=== PATIENT | male | born 1965 | race Caucasian/White ===

== ENCOUNTER 2018-08-03 21:06 | Inpatient (IN) | payer MEDICAID ==
[~2018-08-03] VITALS: Ht 180.3 cm; Wt 89.8 kg
[~2018-08-03 21:06] MED LIST: IBUPROFEN
--- NOTE | 2018-08-03 22:09 | NUR ---
Dr. Manuel at bedside for MSE.
[2018-08-03] MEDS ORDERED: IV NORMAL SALINE 1000 ML BAG IV ONE (22:15)
[2018-08-03] MEDS ORDERED: VANCOMYCIN IV 1,000 MG in IV DEXTROSE 5% 250 ML IV ONE (22:15)
[2018-08-03] MEDS ORDERED: VANCOMYCIN IV 200 ML ONE (22:23)
--- NOTE | 2018-08-03 22:31 | NUR ---
Xray at bedside.
[2018-08-03 22:37] LABS: BASOPHILS % (AUTO) 0.4 % (0.0-2.0); EOSINOPHILS # (AUTO) 0.2 K/uL (0.0-0.7); HEMATOCRIT 43.6 % (36.7-47.1); HEMOGLOBIN 14.7 g/dL (12.5-16.3); LYMPHOCYTES # (AUTO) 1.2 K/uL (20.0-40.0); LYMPHOCYTES % (AUTO) 11.9 % (20.5-51.5); MEAN CORPUSCULAR HEMOGLOBIN 29.3 uug (23.8-33.4); MEAN CORPUSCULAR HGB CONC 34 g/dL (32.5-36.3); MEAN CORPUSCULAR VOLUME 86.8 fL (73.0-96.2); MONOCYTES % (AUTO) 9.9 % (0.0-11.0); NEUTROPHILS # (AUTO) 7.8 K/uL (1.8-8.9); NEUTROPHILS % (AUTO) 75.8 % (38.5-71.5); PLATELET COUNT (AUTO) 238 K/uL (152-348); RED BLOOD CELL COUNT(AUTO) 5.02 MIL/uL (4.06-5.63); WHITE BLOOD COUNT (AUTO) 10.3 K/uL (3.6-10.2)
--- NOTE | 2018-08-03 22:39 | NUR ---
Wound culture collected, sent to lab.
[2018-08-03 22:52] LABS: CREATININE 1.1 mg/dL (0.6-1.3); POTASSIUM 3.7 mmol/L (3.5-5.1)
[2018-08-03 22:57] LABS: BILIRUBIN,DIRECT 0.1 mg/dL (0.0-0.2); BILIRUBIN,TOTAL 0.2 mg/dL (0.2-1.0); TOTAL PROTEIN, SERUM 7.4 g/dL (6.4-8.2)
--- NOTE | 2018-08-03 23:15 | NUR ---
Dr. Manuel on panel call with Dr. Casiano. Patient accepted for [facility], diagnosis Cellulitis.
--- NOTE | 2018-08-03 23:51 | NUR ---
Report given to Whit GUILLEN Medsurg.
[2018-08-04] VITALS: BP 129/82
--- NOTE | 2018-08-04 00:05 | NUR ---
Received patient from ED via wheelchair accompanied by nurse and . Patient is alert and oriented x 4. Noted IV access at right antecubital vein, 22g, patent and intact. Noted swelling on left leg with wound dressed with kerlix. Patient able to ambulate and walked to transfer to bed. Patient oriented to unit. Left leg dressing changed after assessing and taking pictures of wound. Bed in low position, side rails up x 2, call light within reach. Noise and light subdued. Ensured safety and comfort. Will continue to monitor.
[2018-08-04 01:01] LABS: *BLOOD, URINE Trace-intact (NEGATIVE); *CLARITY,URINE SLIGHTLY CLOUDY (CLEAR); *COLOR,URINE YELLOW (YELLOW); *KETONES,URINE TRACE (NEGATIVE); LEUKOCYTE ESTERASE ,URINE NEGATIVE (NEGATIVE); NITRITE, URINE NEGATIVE (NEGATIVE); PH,URINE 5.5 (5.0-8.0); UGLUCOSE NEGATIVE (NEGATIVE)
[2018-08-04] MEDS ORDERED: HYDROCODONE/APAP 5-325MG TABLET PO PRN (01:15)
[2018-08-04] MEDS ORDERED: ONDANSETRON 4 MG/2 ML VIAL IV PRN (01:15)
[2018-08-04] MEDS ORDERED: ACETAMINOPHEN 325 MG TABLET PO PRN (01:15)
[2018-08-04 01:21] LABS: *BILIRUBIN,URIN 1+ (NEGATIVE)
[2018-08-04 01:50] LABS: BACTERIA,URINE NONE SEEN /HPF (NONE SEEN); MUCUS,URINE MANY /LPF (0-FEW); SQUAMOUS EPITHELIAL CELL,UR FEW /HPF (NONE SEEN); WBC,URINE 0-3 /HPF (0-3)
[2018-08-04 01:51] LABS: URINE AMORPHOUS URATE FEW /HPF
[2018-08-04] MEDS ORDERED: PIPERACILLIN/TAZOBACTAM/D5W 50 ML IV ONE (03:03)
[2018-08-04] MEDS: PIPERACILLIN/TAZOBACTAM/D5W 3.375 G in PREMIXED 1 EACH IV SCH ×3 (03:13→18:09)
[2018-08-04] MEDS: PANTOPRAZOLE SODIUM 40 MG TABLET.DR PO SCH (06:09)
--- NOTE | 2018-08-04 06:26 | NUR ---
Patient slept intermittently throughout the night. Patient made no complaints. Left leg kept elevated. Attended all needs. Ensured safety and comfort. No other untoward events noted.
[2018-08-04 06:43] LABS: BASOPHILS % (AUTO) 0.5 % (0.0-2.0); EOSINOPHILS # (AUTO) 0.3 K/uL (0.0-0.7); EOSINOPHILS % (AUTO) 4.6 % (0.0-7.0); HEMATOCRIT 40.2 % (36.7-47.1); HEMOGLOBIN 13.4 g/dL (12.5-16.3); LYMPHOCYTES # (AUTO) 1.2 K/uL (20.0-40.0); LYMPHOCYTES % (AUTO) 15.8 % (20.5-51.5); MEAN CORPUSCULAR HEMOGLOBIN 28.9 uug (23.8-33.4); MEAN CORPUSCULAR HGB CONC 33 g/dL (32.5-36.3); MEAN CORPUSCULAR VOLUME 86.3 fL (73.0-96.2); MONOCYTES # (AUTO) 0.7 K/uL (2.0-10.0); MONOCYTES % (AUTO) 9.8 % (0.0-11.0); NEUTROPHILS # (AUTO) 5.2 K/uL (1.8-8.9); NEUTROPHILS % (AUTO) 69.3 % (38.5-71.5); PLATELET COUNT (AUTO) 224 K/uL (152-348); RED BLOOD CELL COUNT(AUTO) 4.66 MIL/uL (4.06-5.63); WHITE BLOOD COUNT (AUTO) 7.4 K/uL (3.6-10.2)
[2018-08-04 06:49] LABS: MAGNESIUM 2.2 mg/dL (1.8-2.4); PHOSPHOROUS 4.2 mg/dL (2.5-4.9)
[2018-08-04 06:55] LABS: BILIRUBIN,TOTAL 0.2 mg/dL (0.2-1.0); POTASSIUM 3.5 mmol/L (3.5-5.1); TOTAL PROTEIN, SERUM 6.2 g/dL (6.4-8.2)
[2018-08-04] MEDS: VANCOMYCIN IV 1,500 MG in IV DEXTROSE 5% 500 ML IV SCH ×2 (08:37→21:02)
[2018-08-04 11:56] VITALS: BP 106/73
--- NOTE | 2018-08-04 12:26 | NUR ---
Clinical Pharmacy Note: Vancomycin Dosing per Pharmacy Subjective: Vancomycin IV to start on this 53 yo male patient for cellulitis. Objective: BUN 15/Scr 1.0 WBC 7.4 Temperature 97.7 ht 180 cm wt 89.8 kg Assessment/Plan: Patient received vanco 1gm in ED on 08/03 at 2230. Will start vancomycin 1500mg IVPB Q12hr for a predicted vancomycin steady state trough level of 16.6 mcg/ml. 1st dose today at 0900. Will draw a vancomycin trough level prior to the 4th dose of vancomycin (not ordered yet). Will monitor renal function and adjust vancomycin dose, if needed, should renal function change significantly. Will follow daily.
--- NOTE | 2018-08-04 13:06 | NUR ---
WOUND CARE CONSULT: PT PRESENTS WITH CRUSTING AND WOUND TO LEFT LOWER LEG, PRESENT ON ADMISSION. RECOMMEND DPM CONSULT. RECOMMENDATIONS MADE FOR WOUND CARE AND SKIN PROTECTION. DISCUSSED WITH NURSING STAFF. CURRENT SHELLI SCORE IS 22. WILL SEE PRN. [place] IN AGREEMENT WITH PLAN OF CARE. Addendum: 08/04/18 at 1307 by MARTHA DELGADO RN Amended: Links added.
[2018-08-04] MEDS: NICOTINE 14 MG/24HR PATCH TD SCH (13:44)
[2018-08-04 16:00] VITALS: BP 117/78
[2018-08-04] MEDS: SODIUM HYPOCHLORITE 0.125% 473 ML BOTTLE TP SCH (19:00)
[2018-08-04] MEDS: SILVER SULFADIAZINE 1% CREAM 50 GM TP SCH (19:01)
--- NOTE | 2018-08-04 19:20 | NUR ---
Received patient awake in bed with visitors in room. Patient is alert and oriented x 4. Noted IV access at left wrist, patent and intact. Noted swelling on left leg with wound dressed with kerlix. Patient able to ambulate to and from restroom. No complaints of pain at this time. Bed in low position, side rails up x 2, call light within reach. Noise and light subdued. Ensured safety and comfort. Will continue to monitor.
[2018-08-04 20:20] VITALS: BP 116/80
[2018-08-04] MEDS: CULTURELLE CAPSULE PO SCH (21:02)
[2018-08-05] MEDS: PIPERACILLIN/TAZOBACTAM/D5W 3.375 G in PREMIXED 1 EACH IV SCH (01:38)
[2018-08-05 06:00] VITALS: BP 116/72
[2018-08-05] MEDS: PANTOPRAZOLE SODIUM 40 MG TABLET.DR PO SCH (06:13)
--- NOTE | 2018-08-05 06:14 | NUR ---
Patient slept well throughout the night. No complaints of pain made. Left leg kept elevated. Wound care done. Attended all needs. Ensured safety and comfort. No other untoward events noted.
[2018-08-05 06:25] LABS: BASOPHILS % (AUTO) 0.6 % (0.0-2.0); EOSINOPHILS # (AUTO) 0.4 K/uL (0.0-0.7); EOSINOPHILS % (AUTO) 6.2 % (0.0-7.0); HEMATOCRIT 41.7 % (36.7-47.1); LYMPHOCYTES # (AUTO) 1.5 K/uL (20.0-40.0); LYMPHOCYTES % (AUTO) 22.5 % (20.5-51.5); MEAN CORPUSCULAR HEMOGLOBIN 29.1 uug (23.8-33.4); MEAN CORPUSCULAR HGB CONC 34 g/dL (32.5-36.3); MEAN CORPUSCULAR VOLUME 86.8 fL (73.0-96.2); MONOCYTES # (AUTO) 0.7 K/uL (2.0-10.0); MONOCYTES % (AUTO) 10.2 % (0.0-11.0); NEUTROPHILS % (AUTO) 60.5 % (38.5-71.5); PLATELET COUNT (AUTO) 276 K/uL (152-348); WHITE BLOOD COUNT (AUTO) 6.7 K/uL (3.6-10.2)
[2018-08-05 06:41] LABS: CREATININE 1.1 mg/dL (0.6-1.3); PHOSPHOROUS 4.5 mg/dL (2.5-4.9); POTASSIUM 3.6 mmol/L (3.5-5.1)
[2018-08-05] MEDS: NICOTINE 14 MG/24HR PATCH TD SCH (08:58)
[2018-08-05] MEDS: CULTURELLE CAPSULE PO SCH ×2 (08:58→20:55)
[2018-08-05] MEDS: VANCOMYCIN IV 1,500 MG in IV DEXTROSE 5% 500 ML IV SCH ×2 (08:58→20:53)
--- NOTE | 2018-08-05 09:27 | NUR ---
PATIENT REPORTS HAVING SOME ITCHINESS ON HIS BACK, PATIENT THOUGHT IT WAS JUST BECAUSE HE HAS BEEN LYING IN BED AND IS SWEATING , PATIENT STARTED THIS AM, STARTED INFUSION OF VANCO, HELD AT THIS TIME STOPPED INFUSING, PATIENT DENIES ANY SOB, OR DISTRESS, REMAINS STABLE NO ALTERED MENTAL STATUS FROM BASELINE, JUST ITCHINESS ON BACK AND POSTERIOR PART OF NECK AT THIS TIME. PAGED CONOR GONZALES, MAXIMINO THRU EXCHANGE
--- NOTE | 2018-08-05 09:35 | NUR ---
RECVD ORDERS FOR BENADRYL 25MG IV Q6HR PRN ITCHING, CONOR GONZALES, MAXIMINO, ORDERS REPEATED BACK.
[2018-08-05] MEDS: diphenhydrAMINE 50 MG/1 ML VIAL IV PRN ×3 (09:52→21:39)
[2018-08-05] MEDS: SILVER SULFADIAZINE 1% CREAM 50 GM TP SCH ×2 (09:52→18:23)
[2018-08-05] MEDS: SODIUM HYPOCHLORITE 0.125% 473 ML BOTTLE TP SCH ×2 (09:53→18:23)
--- NOTE | 2018-08-05 11:30 | NUR ---
DISCUSSED REACTION WITH CONOR GONZALES DNP , PATIENT ON IV ANTIBIOTICS ZOSYN AND VANCOMYCIN, PER INTERNSIT DISCONTINUE ZOSYN AND EXTEND VANCOMYCIN TO 3 HR INFUSION.
[2018-08-05 11:52] VITALS: BP 113/70
--- NOTE | 2018-08-05 13:18 | NUR ---
Clinical Pharmacy Note: Vancomycin Dosing per Pharmacy Subjective: Vancomycin IV to continue on this 53 yo male patient for cellulitis. Objective: BUN 17/Scr 1.1 WBC 6.7 Temperature 98.2 ht 180 cm wt 89.8 kg Trough pending tomorrow am at 0830 Assessment/Plan: Will continue vancomycin 1500mg IVPB Q12hr for a predicted vancomycin steady state trough level of 16.6 mcg/ml. Although 3rd dose today was at 0900, there was delay in infusion finishing per RN due to reaction concerns. Rate increased to infuse over 3 hrs now per MD. Therefore, will check trough before 5th dose, ordered for 0830 tomorrow 08/06. Will check when available and adjust as needed. will follow
[2018-08-05] MEDS ORDERED: LIDOCAINE 1%-EPI 1:100,000 20 ML VIAL TP ONE (14:30)
[2018-08-05] MEDS ORDERED: ONDANSETRON 4 MG/2 ML VIAL IV ONE (14:45)
[2018-08-05] MEDS ORDERED: HYDROCODONE/APAP 5-325MG TABLET PO ONE (14:45)
[2018-08-05 15:48] VITALS: BP 113/78
--- NOTE | 2018-08-05 19:00 | NUR ---
PATIENT MRSA NARES POSITIVE, PROVIDED EDUCATIONAL HANDOUT AND EDUCATED FAMILY, QUESTIONS AND CONCERNS ADDRESSED.
[2018-08-05 19:51] VITALS: BP 123/83
[2018-08-05] MEDS: MUPIROCIN 2% OINT 22 GM TUBE NS SCH (20:54)
--- NOTE | 2018-08-05 22:00 | NUR ---
Patient in bed, no SOB denies chest pain. Left leg elevated on a pillow, dressing intact no sign of bleeding. Vital signs WNL. Routine night meds given. Patient c/o back itchiness. Benadryl 25 mg IVP adm.
--- NOTE | 2018-08-06 | NUR ---
Patient asleep no sign of distress.
[2018-08-06 05:01] VITALS: BP 116/66
[2018-08-06] MEDS: PANTOPRAZOLE SODIUM 40 MG TABLET.DR PO SCH (05:45)
--- NOTE | 2018-08-06 07:25 | NUR ---
PATIENT ON CONTACT ISOLATION FOR MRSA IN THE NARES. PATIENT IS ALERT AND ORIENTED, RESTING IN HIS COMFORTABLY, BED IN LOW POSITION WITH SIDE RAILS UPX2 . NO SOB AND NO C/O PAIN NOTED. CALL LIGHT WITHIN REACHED. WILL CONTINUE TO MONITOR AND CONTINUE PLAN OF CARE.
[2018-08-06] MEDS: MUPIROCIN 2% OINT 22 GM TUBE NS SCH (09:53)
[2018-08-06] MEDS: CULTURELLE CAPSULE PO SCH (09:53)
[2018-08-06] MEDS: NICOTINE 14 MG/24HR PATCH TD SCH (09:53)
[2018-08-06] MEDS: SODIUM HYPOCHLORITE 0.125% 473 ML BOTTLE TP SCH (09:56)
[2018-08-06] MEDS: SILVER SULFADIAZINE 1% CREAM 50 GM TP SCH (09:56)
[2018-08-06] MEDS ORDERED: CEPH-570 PO (10:09)
[2018-08-06] MEDS ORDERED: SULF1TAB48 PO (10:09)
--- NOTE | 2018-08-06 10:59 | NUR ---
Clinical Pharmacy Note: Vancomycin Dosing per Pharmacy Subjective: Vancomycin IV to continue on this 53 yo male patient for cellulitis. Objective: BUN 17/Scr 1.1(08/05) WBC 6.7 (08/05) Temperature 98.4 ht 180 cm wt 89.8 kg Trough today at 0900(ordered at 0830 but delayed 30min) was 11.7(extrapolated trough is 12.8) Assessment/Plan: Since Vancomycin trough is under the therapeutic range, will change to 1500mg IV every 11hrs(first dose today at 1100) and draw trough by 4th dose(not ordered yet) for expected trough around 14.7. Will monitor daily.
[2018-08-06] MEDS ORDERED: VANCOMYCIN IV 1,500 MG in IV DEXTROSE 5% 500 ML IV SCH (11:00)
[2018-08-06 11:10] VITALS: BP 123/90
[2018-08-06 11:28] LABS: BILIRUBIN,TOTAL 0.1 mg/dL (0.2-1.0); CREATININE 1.1 mg/dL (0.6-1.3); PHOSPHOROUS 3.9 mg/dL (2.5-4.9); POTASSIUM 4.1 mmol/L (3.5-5.1); TOTAL PROTEIN, SERUM 6.6 g/dL (6.4-8.2)
--- NOTE | 2018-08-06 11:30 | NUR ---
Patient REFUSED photos for the discharge process.
--- NOTE | 2018-08-06 11:40 | NUR ---
patient discharge to home via private car with Wendy, patient alert and oriented, ambulatory. provided treatment. patient given discharge instruction to follow up with PMD within 2 weeks as ordered, medication prescription and verbalized understanding. Removed IV and Id band. No SOB and no c/o pain at this time. Belongings accounted for , questions and concerns addressed.
== END 2018-08-06 11:40 | disposition home or self-care (01) | DRG 813 ==
LOC: ER 21:06 → MED 08-04 00:05
PROVIDERS: ADMIT Internal Medicine; ATTEND Nurse Practitioner Acute Care
PROC: 0HBLXZZ Excision of Left Lower Leg Skin, External Approach (ICD-10-PCS; principal; 2018-08-05)
DX: T81.599A Other complications of foreign body accidentally left in body following unspecified procedure, initial encounter (principal); T81.31XA Disruption of external operation (surgical) wound, not elsewhere classified, initial encounter; L03.116 Cellulitis of left lower limb; E88.09 Other disorders of plasma-protein metabolism, not elsewhere classified; L97.828 Non-pressure chronic ulcer of other part of left lower leg with other specified severity; T81.41XA Infection following a procedure, superficial incisional surgical site, initial encounter; Y83.8 Other surgical procedures as the cause of abnormal reaction of the patient, or of later complication, without mention of misadventure at the time of the procedure; Y92.239 Unspecified place in hospital as the place of occurrence of the external cause; F17.210 Nicotine dependence, cigarettes, uncomplicated; R74.0 Nonspecific elevation of levels of transaminase and lactic acid dehydrogenase [LDH]; I87.2 Venous insufficiency (chronic) (peripheral); Z22.322 Carrier or suspected carrier of Methicillin resistant Staphylococcus aureus; V29.9XXS Motorcycle rider (driver) (passenger) injured in unspecified traffic accident, sequela
CPT/HCPCS: 36415; 73590; 83605; 83690; 83735; 84100; 85025; 87040; 87070; 87077; 87086; 93005; A4663; G0378; J1200; J2405; J2543; J3370; J3490; J7030; J7050; J7060

== ENCOUNTER 2018-08-21 23:04 | Emergency (ER) | payer MEDICAID ==
[~2018-08-21] VITALS: Ht 180.3 cm; Wt 90.7 kg
[~2018-08-21 23:04] MED LIST changes: +CEPH-570 PO; +SULF1TAB48 PO
--- NOTE | 2018-08-21 23:19 | NUR ---
Note marta in EDM - 08/21/18 at 2324 by ALMAS Pt. ambulated into ED w/ LLE cellulitis on the ankle area and c/o 8/10 pain, denies JOE/CP/F/C/N/V/D, CMS of distal extremity intact,
--- NOTE | 2018-08-21 23:28 | NUR ---
Pt. ambulated into ED for wound check of LLE viramontes area cellulitis, pt. was here 2 weeks ago and prescribed bactrim and keflex which was finished per order, LLE appears red and scaling- pt. reports that the affected area has decreased in size but is still itchy, RLE viramontes area also has redness, denies JOE/CP/F/C/N/V
[2018-08-21] MEDS ORDERED: SILVER SULFADIAZINE 1% CREAM 25 GM TUBE TP ONE (23:57)
[2018-08-22] MEDS ORDERED: SILVER SULFADIAZINE 1% CREAM 50 GM TP ONE
--- NOTE | 2018-08-22 00:09 | NUR ---
Patient discharged to home in stable conditon. Written and verbal after care instructions given. Patient verbalizes understanding of instructions. Patient ambulated with stable gait.
[2018-08-22 00:10] VITALS: BP 115/89
== END 2018-08-22 00:11 | disposition home or self-care (01) ==
LOC: ER 23:04
DX: L03.116 Cellulitis of left lower limb (principal); F15.10 Other stimulant abuse, uncomplicated; F17.290 Nicotine dependence, other tobacco product, uncomplicated; Z71.6 Tobacco abuse counseling; Z88.1 Allergy status to other antibiotic agents; Z88.8 Allergy status to other drugs, medicaments and biological substances; Z79.899 Other long term (current) drug therapy
CPT/HCPCS: A4663